=== PATIENT | male | born 1965 | race Caucasian/White ===

== ENCOUNTER → 2022-02-11 09:36 | Outpatient (CLI) | payer OTHER, SELFPAY ==
[2022-02-11 10:58] LABS: Add Manual Diff / Slide Review NO; Basophils Absolute Auto 0 /uL (0-100); Basophils Percent Auto 0.7 % (0-2); Eosinophils Absolute Auto 100 /uL (0-450); Eosinophils Percent Auto 2.3 % (2-4); Hematocrit 41.8 % (41-53); Hemoglobin 14.8 g/dL (13.5-17.5); Lymphocytes Absolute Auto 1500 /uL (1100-4500); Lymphocytes Percent Auto 31.6 % (25-40); Mean Corpuscular HGB Conc 35.5 % (30-36); Mean Corpuscular Hemoglobin 29.9 PG (26-34); Mean Corpuscular Volume 84.3 fL (80-100); Monocytes Absolute Auto 400 /uL (0-900); Monocytes Percent Auto 8.5 % (3-14); Neutrophils Absolute Auto 2700 /uL (1500-7000); Neutrophils Percent Auto 56.9 % (50-75); Platelet Count 256 X10^3/uL (150-400); Red Blood Cell Count 4.96 X10^6/uL (4.5-5.9); Red Cell Distribution Width 12.3 % (11.6-14.8); White Blood Cell Count 4.8 X10^3/uL (4.5-11.0)
[2022-02-11 11:41] LABS: Hemoglobin A1C% w Est Avg Glu 6.8 % (4.0-6.0)
[2022-02-11 11:45] LABS: Alanine Aminotransferase 24 IU/L (<50); Albumin 4.7 g/dL (3.5-5.0); Albumin Globulin Ratio 1.7 (1.0-2.8); Alkaline Phosphatase 59 U/L (38-126); Aspartate Aminotransferase 27 IU/L (17-59); BUN Creatinine Ratio 15.9 (6-22); Bilirubin Total 0.7 mg/dL (0.2-1.3); Blood Urea Nitrogen 13 mg/dL (9-20); Calcium 8.7 mg/dL (8.4-10.2); Carbon Dioxide 29 mmol/L (22-32); Chloride 98 mmol/L (98-107); Cholesterol 130 mg/dL (140-199); Estimated Glomerular Filt Rate > 60 mL/min (>60); Globulin 2.8 g/dL (1.7-4.1); Glucose 121 mg/dL (70-100); HDL Cholesterol 27 mg/dL (40-60); LDL Cholesterol Calculated 76 mg/dL (<100); Potassium 3.5 mmol/L (3.4-5.1); Sodium 137 mmol/L (137-145); Total Protein 7.5 g/dL (6.3-8.2); Triglycerides 135 mg/dL (35-150)
[2022-02-11 11:46] LABS: Creatinine Urine Random 333.8 mg/dL
[2022-02-11 11:47] LABS: Microalbumi Creatinin Ratio Ur 12.5 ug/mg CR (<30); Microalbumin Urine Random 4.2 mg/dL (0-1.6)
[2022-02-11 12:12] LABS: TSH w/ Reflex to FT4 0.11 uIU/mL (0.47-4.68)
[2022-02-12 05:17] LABS: HEMOLYSIS < 15 (0-50); Prostate Specific Antigen 1.88 ng/mL (0.10-4.00)
== END ==
PROVIDERS: PCP Family Medicine; Referring Provider Family Medicine; Visit Provider Family Medicine
DX: E78.2 Mixed hyperlipidemia (principal); F41.9 Anxiety disorder, unspecified; Z87.898 Personal history of other specified conditions; E11.9 Type 2 diabetes mellitus without complications; I10 Essential (primary) hypertension; Z00.00 Encounter for general adult medical examination without abnormal findings; Z13.9 Encounter for screening, unspecified
CPT/HCPCS: 36415; 80053; 80061; 82043; 82570; 83036; 84153; 84439; 84443; 85025

== ENCOUNTER → 2022-09-16 09:05 | Outpatient (CLI) | payer OTHER, SELFPAY ==
[2022-09-16 10:50] LABS: Alanine Aminotransferase 27 IU/L (<50); Albumin 4.4 g/dL (3.5-5.0); Albumin Globulin Ratio 1.4 (1.0-2.8); Alkaline Phosphatase 67 U/L (38-126); Aspartate Aminotransferase 26 IU/L (17-59); BUN Creatinine Ratio 18.3 (6-22); Bilirubin Total 0.5 mg/dL (0.2-1.3); Blood Urea Nitrogen 13 mg/dL (9-20); Calcium 8.6 mg/dL (8.4-10.2); Carbon Dioxide 27 mmol/L (22-32); Chloride 100 mmol/L (98-107); Cholesterol 136 mg/dL (140-199); Estimated Glomerular Filt Rate > 60 mL/min (>60); Globulin 3.2 g/dL (1.7-4.1); Glucose 183 mg/dL (70-100); HDL Cholesterol 28 mg/dL (40-60); HEMOLYSIS < 15 (0-50); LDL Cholesterol Calculated 78 mg/dL (<100); Potassium 3.6 mmol/L (3.4-5.1); Sodium 136 mmol/L (137-145); Total Protein 7.6 g/dL (6.3-8.2); Triglycerides 149 mg/dL (35-150)
== END ==
PROVIDERS: PCP Family Medicine; Referring Provider Family Medicine; Visit Provider Family Medicine
DX: E11.9 Type 2 diabetes mellitus without complications (principal); E78.2 Mixed hyperlipidemia; I10 Essential (primary) hypertension; Z13.9 Encounter for screening, unspecified; Z00.00 Encounter for general adult medical examination without abnormal findings
CPT/HCPCS: 36415; 80053; 80061; 83036

== ENCOUNTER → 2022-12-31 09:14 | Outpatient (CLI) | payer OTHER, MEDICAID, SELFPAY ==
[2022-12-31 11:04] LABS: Alanine Aminotransferase 30 IU/L (<50); Albumin 4.6 g/dL (3.5-5.0); Albumin Globulin Ratio 1.6 (1.0-2.8); Alkaline Phosphatase 65 U/L (38-126); Aspartate Aminotransferase 27 IU/L (17-59); BUN Creatinine Ratio 18.8 (6-22); Bilirubin Total 0.7 mg/dL (0.2-1.3); Blood Urea Nitrogen 15 mg/dL (9-20); Calcium 9.1 mg/dL (8.4-10.2); Carbon Dioxide 29 mmol/L (22-32); Chloride 96 mmol/L (98-107); Estimated Glomerular Filt Rate > 60 mL/min (>60); Globulin 2.8 g/dL (1.7-4.1); Glucose 132 mg/dL (70-100); HEMOLYSIS < 15 (0-50); Potassium 4.1 mmol/L (3.4-5.1); Sodium 136 mmol/L (137-145); Total Protein 7.4 g/dL (6.3-8.2)
[2023-01-01 09:51] LABS: x Labcorp Estim. Avg Glu (eAG) 140 mg/dL (.); x Labcorp Hemoglobin A1c 6.5 % (4.8-5.6)
== END ==
PROVIDERS: PCP Family Medicine; Referring Provider Family Medicine; Visit Provider Family Medicine
DX: E11.9 Type 2 diabetes mellitus without complications (principal); E78.2 Mixed hyperlipidemia; I10 Essential (primary) hypertension; Z13.9 Encounter for screening, unspecified
CPT/HCPCS: 36415; 80053; 83036

== ENCOUNTER → 2023-04-29 09:04 | Outpatient (CLI) | payer OTHER, MEDICAID, SELFPAY ==
[2023-04-29 10:38] LABS: Hemoglobin A1C% w Est Avg Glu 6.1 % (4.0-6.0)
[2023-04-29 10:40] LABS: Alanine Aminotransferase 30 IU/L (<50); Albumin 4.5 g/dL (3.5-5.0); Albumin Globulin Ratio 1.7 (1.0-2.8); Alkaline Phosphatase 52 U/L (38-126); Aspartate Aminotransferase 34 IU/L (17-59); BUN Creatinine Ratio 16.2 (6-22); Bilirubin Total 0.7 mg/dL (0.2-1.3); Blood Urea Nitrogen 12 mg/dL (9-20); Calcium 9.2 mg/dL (8.4-10.2); Carbon Dioxide 30 mmol/L (22-32); Chloride 98 mmol/L (98-107); Cholesterol 128 mg/dL (140-199); Estimated Glomerular Filt Rate > 60 mL/min (>60); Globulin 2.7 g/dL (1.7-4.1); Glucose 156 mg/dL (70-100); HDL Cholesterol 29 mg/dL (40-60); HEMOLYSIS 18 (0-50); LDL Cholesterol Calculated 48 mg/dL (<100); Potassium 3.8 mmol/L (3.4-5.1); Sodium 138 mmol/L (137-145); Total Protein 7.2 g/dL (6.3-8.2); Triglycerides 254 mg/dL (35-150)
[2023-04-29 11:11] LABS: Prostate Specific Antigen 1.95 ng/mL (0.10-4.00)
== END ==
PROVIDERS: PCP Family Medicine; Referring Provider Family Medicine; Visit Provider Family Medicine
DX: E11.9 Type 2 diabetes mellitus without complications (principal); E78.5 Hyperlipidemia, unspecified; I10 Essential (primary) hypertension; N40.0 Benign prostatic hyperplasia without lower urinary tract symptoms
CPT/HCPCS: 36415; 80053; 80061; 83036; 84153

== ENCOUNTER → 2023-05-06 14:45 | Outpatient (CLI) | payer OTHER, MEDICAID, SELFPAY ==
[2023-05-06 19:36] LABS: Creatinine Urine Random 83.1 mg/dL
[2023-05-06 19:42] LABS: Microalbumi Creatinin Ratio Ur 10.8 ug/mg CR (<30); Microalbumin Urine Random 0.9 mg/dL (0-1.6)
== END ==
PROVIDERS: PCP Family Medicine; Visit Provider Family Medicine
DX: E11.9 Type 2 diabetes mellitus without complications (principal); I10 Essential (primary) hypertension
CPT/HCPCS: 82043; 82570

== ENCOUNTER → 2023-10-27 09:17 | Outpatient (CLI) | payer OTHER, MEDICAID, SELFPAY ==
[2023-10-27 10:26] LABS: Add Manual Diff / Slide Review NO; Basophils Absolute Auto 0 /uL (0-100); Basophils Percent Auto 0.9 % (0-2); Eosinophils Absolute Auto 100 /uL (0-450); Eosinophils Percent Auto 1.2 % (2-4); Hematocrit 43.6 % (41-53); Hemoglobin 15.8 g/dL (13.5-17.5); Lymphocytes Absolute Auto 1200 /uL (1100-4500); Lymphocytes Percent Auto 25.3 % (25-40); Mean Corpuscular HGB Conc 36.3 % (30-36); Mean Corpuscular Hemoglobin 31.2 PG (26-34); Mean Corpuscular Volume 85.9 fL (80-100); Monocytes Absolute Auto 400 /uL (0-900); Monocytes Percent Auto 8.6 % (3-14); Neutrophils Absolute Auto 3100 /uL (1500-7000); Platelet Count 239 X10^3/uL (150-400); Red Blood Cell Count 5.08 X10^6/uL (4.5-5.9); Red Cell Distribution Width 12.4 % (11.6-14.8); White Blood Cell Count 4.8 X10^3/uL (4.5-11.0)
[2023-10-27 10:48] LABS: Hemoglobin A1C% w Est Avg Glu 7.4 % (4.0-6.0)
[2023-10-27 11:02] LABS: Alanine Aminotransferase 56 IU/L (<50); Albumin 4.6 g/dL (3.5-5.0); Albumin Globulin Ratio 1.4 (1.0-2.8); Alkaline Phosphatase 64 U/L (38-126); Aspartate Aminotransferase 41 IU/L (17-59); BUN Creatinine Ratio 21.3 (6-22); Bilirubin Total 1.1 mg/dL (0.2-1.3); Blood Urea Nitrogen 16 mg/dL (9-20); Calcium 9.5 mg/dL (8.4-10.2); Carbon Dioxide 30 mmol/L (22-32); Chloride 99 mmol/L (98-107); Cholesterol 153 mg/dL (140-199); Estimated Glomerular Filt Rate > 60 mL/min (>60); Globulin 3.3 g/dL (1.7-4.1); Glucose 167 mg/dL (70-100); HDL Cholesterol 32 mg/dL (40-60); HEMOLYSIS < 15 (0-50); LDL Cholesterol Calculated 65 mg/dL (<100); Potassium 4.2 mmol/L (3.4-5.1); Sodium 137 mmol/L (137-145); Total Protein 7.9 g/dL (6.3-8.2); Triglycerides 282 mg/dL (35-150)
[2023-10-27 11:31] LABS: Prostate Specific Antigen Scrn 2.92 ng/mL (0.1-4.0)
[2023-10-27 11:33] LABS: TSH w/ Reflex to FT4 0.39 uIU/mL (0.47-4.68)
[2023-10-27 12:44] LABS: Free T4, Direct Thyroxine 0.98 ng/dL (0.78-2.19)
== END ==
PROVIDERS: PCP Family Medicine; Referring Provider Family Medicine; Visit Provider Family Medicine
DX: E78.2 Mixed hyperlipidemia (principal); K76.0 Fatty (change of) liver, not elsewhere classified; E11.9 Type 2 diabetes mellitus without complications; I10 Essential (primary) hypertension; Z12.5 Encounter for screening for malignant neoplasm of prostate
CPT/HCPCS: 36415; 80053; 80061; 83036; 84439; 84443; 85025; G0103

== ENCOUNTER → 2024-06-01 09:42 | Outpatient (CLI) | payer OTHER, MEDICAID, SELFPAY ==
[2024-06-01 17:18] LABS: Hemoglobin A1C% w Est Avg Glu 6.5 % (4.0-6.0)
== END ==
PROVIDERS: PCP Family Medicine; Referring Provider Family Medicine; Visit Provider Family Medicine
DX: E11.9 Type 2 diabetes mellitus without complications (principal)
CPT/HCPCS: 36415; 83036

== ENCOUNTER → 2024-11-30 09:15 | Outpatient (CLI) | payer OTHER, SELFPAY ==
[2024-11-30 10:04] LABS: Add Manual Diff / Slide Review NO; Basophils Absolute Auto 0 /uL (0-100); Basophils Percent Auto 0.7 % (0-2); Eosinophils Absolute Auto 100 /uL (0-450); Eosinophils Percent Auto 1.5 % (2-4); Hematocrit 43.4 % (41-53); Hemoglobin 15.2 g/dL (13.5-17.5); Lymphocytes Absolute Auto 1200 /uL (1100-4500); Lymphocytes Percent Auto 25.6 % (25-40); Mean Corpuscular HGB Conc 35.1 % (30-36); Mean Corpuscular Hemoglobin 30.9 PG (26-34); Mean Corpuscular Volume 87.9 fL (80-100); Monocytes Absolute Auto 400 /uL (0-900); Monocytes Percent Auto 8.5 % (3-14); Neutrophils Absolute Auto 2900 /uL (1500-7000); Neutrophils Percent Auto 63.7 % (50-75); Platelet Count 198 X10^3/uL (150-400); Red Blood Cell Count 4.94 X10^6/uL (4.5-5.9); Red Cell Distribution Width 12.5 % (11.6-14.8); White Blood Cell Count 4.5 X10^3/uL (4.5-11.0)
[2024-11-30 10:07] LABS: Hemoglobin A1C% w Est Avg Glu 6.7 % (4.0-6.0)
[2024-11-30 10:20] LABS: Alanine Aminotransferase 36 IU/L (<50); Albumin 4.7 g/dL (3.5-5.0); Albumin Globulin Ratio 2.1 (1.0-2.8); Alkaline Phosphatase 73 U/L (38-126); Aspartate Aminotransferase 28 IU/L (17-59); BUN Creatinine Ratio 16.7 (6-22); Bilirubin Total 1.6 mg/dL (0.2-1.3); Blood Urea Nitrogen 15 mg/dL (9-20); Calcium 9.4 mg/dL (8.4-10.2); Carbon Dioxide 28 mmol/L (22-32); Chloride 98 mmol/L (98-107); Cholesterol 148 mg/dL (140-199); Estimated Glomerular Filt Rate > 60 mL/min (>60); Globulin 2.2 g/dL (1.7-4.1); Glucose 192 mg/dL (70-100); HDL Cholesterol 32 mg/dL (40-60); HEMOLYSIS < 15 (0-50); LDL Cholesterol Calculated 64 mg/dL (<100); Potassium 3.8 mmol/L (3.4-5.1); Sodium 136 mmol/L (137-145); Total Protein 6.9 g/dL (6.3-8.2); Triglycerides 260 mg/dL (35-150)
[2024-11-30 10:47] LABS: TSH w/ Reflex to FT4 0.73 uIU/mL (0.47-4.68)
== END ==
PROVIDERS: PCP Family Medicine; Referring Provider Family Medicine; Visit Provider Family Medicine
DX: Z00.00 Encounter for general adult medical examination without abnormal findings (principal); E03.9 Hypothyroidism, unspecified; E11.9 Type 2 diabetes mellitus without complications; E78.2 Mixed hyperlipidemia; I10 Essential (primary) hypertension
CPT/HCPCS: 36415; 80053; 80061; 83036; 84443; 85025

== ENCOUNTER 2025-02-14 06:38 | Day surgery (SDC) | payer OTHER, SELFPAY ==
--- NOTE | 2025-02-14 | PATH_ITS ---
[facility] Accession Number: [id number] No. of containers..01 Tissue . 01 Material submitted: . colon - SIGMOID POLYP . 01 Diagnosis: SIGMOID POLYP: Hyperplastic polyp. STO 02/20/2025 1548 Local . 01 Electronically signed: . James Bergeron MD, Pathologist NPI- [id number] . 01 Gross description: . SIGMOID POLYP: Received in formalin is 1 fragment(s) of reilly, soft tissue measuring 0.4 x 0.4 x 0.2 cm submitted entirely in 1 cassette(s) /MELODY 02/20/2025 1548 Local . 01 Pathologist provided ICD-10: K63.5 . 01 CPT . 076308 Specimen Comment: A courtesy copy of this report has been sent to [phone] Performed at: [address] [id number] MD James Bergeron MD Phone: [phone]
[2025-02-14 07:12] VITALS: BP 141/91; PULSE 104; RESP 16; TEMP 36.1; O2SAT 97
[2025-02-14 07:25] LABS: POC Glucose 197 mg/dL (70-99)
[2025-02-14] MEDS: LACTATED RINGERS 1,000 ML 42 ML IV (07:25)
--- NOTE | 2025-02-14 07:38 | P.HP_ITS ---
History of Present Illness History of Present Illness Chief complaint: Colonoscopy Narrative: Beena is a 59-year-old man here for a colonoscopy. He has had one before about 10 years ago that was normal. No known family history of colon cancer. [facility], LAT[facility] Medical History Depression Borderline hypothyroidism Incontinence of feces with fecal urgency Well adult exam Hyperlipidemia Vision disorder Hearing loss Anxiety (~2011) History of developmental delay Fatty liver (~2011) Diabetes mellitus (~2013) Hypertension (~2008) Surgical History Anesthesia History of colonoscopy (~2017) Kidney stones (~2016) Family History Father Cancer History of heart disease Mother Diabetes mellitus History of heart disease Hyperlipidemia Hypertension Sister Diabetes mellitus Hyperlipidemia Hypertension Grandfather Diabetes mellitus Stroke Grandmother Lupus Grandfather Cancer Social History Smoking Status: Never smoker alcohol intake: current Meds Home Medications and Allergies Home Medications ?Medication ?Instructions ?Recorded ?Confirmed ?Type multivitamin with iron PO 05/06/23 12/06/24 History vitamins A,C,[id number] [ICaps PO 05/06/23 12/06/24 History AREDS] pravastatin 20 mg tablet 20 mg PO BEDTIME #90 tabs 12/06/24 Rx empagliflozin 25 mg tablet 25 mg PO DAILY Poor glycemi c 07/23/24 02/14/25 Rx (Jardiance) control #90 tabs glipizide 5 mg tablet See Rx Instructions .Route 1 09/23/23 02/14/25 Rx .COMPLEX #180 tabs citalopram 10 mg tablet 10 mg PO DAILY #90 tabs 07/2412/06/24 Rx hydrochlorothiazide 12.5 mg tablet 12.5 mg PO DAILY #9 0 tabs 08/20/24 02/14/25 Rx metformin 500 mg tablet,extended 500 mg PO QPM #90 tab s 09/18/24 02/14/25 Rx release 24 hr losartan 50 mg tablet 50 mg PO DAILY #90 tabs 10/2202/14/25 Rx Allergies Allergy/AdvReac Type Severity Reaction Status Date / Time No Known Drug Allergies Allergy Verified 02/14/25 07:20 Exam Vital Signs (past 8 hours): - 02/14/25 07:12 Temperature 97.0 F L Pulse Rate 104 H Respiratory Rate 16 Blood Pressure 141/91 H Pulse Oximetry 97 Oxygen Delivery Method Room Air Oxygen Delivery Method Room Air Const General: No acute distress Objective Labs Labs: Laboratory Results - last 24 hr 02/14/25 07:20 POC Whole Bld Glucose 197 H Assessment & Plan Assessment and plan (1) Colon cancer screening: Status: Acute Plan Colonoscopy Time-Based Coding :: [TOTAL MINUTES] spent with patient and on the chart (including review of chart, obtaining history, exam, reviewing outside data, placing orders, documenting exam and treatment plan, and counseling patient) on [DATE]. [employer] Document charge(s): No
[2025-02-14 08:11] VITALS: BP 105/78; PULSE 84; RESP 12; TEMP 36.3; O2SAT 96
--- NOTE | 2025-02-14 08:14 | P.OP.COLON_ITS ---
Operative Date/Time/Diagnoses Date of procedure: 02/14/25 Time of procedure: 08:14 Pre-op diagnosis: Colon cancer screening Post-op diagnosis: same Procedure & Clinicians Study performed: Colonoscopy Same procedure(s) as scheduled: Yes Surgeon: Harpreet Pizarro Procedure Notes Procedure in detail: Surgeon: Harpreet Pizarro MD Anesthesia: Hernando Mancilla D.O. Procedure: The patient was brought to the endoscopy suite, placed in left lateral decubitus position. The patient was connected to monitoring devices. A time-out was performed. Sedation was administered. Once the patient was adequately sedated, a digital rectal exam was performed and was normal. The scope was then inserted and advanced to the cecum where the appendiceal orifice was identified and photographed. The scope was then slowly withdrawn over greater than 6 minutes. The mucosa was thoroughly inspected. There was mild s igmoid colon diverticulosis. There was a 3 mm polyp in the sigmoid colon removed with a cold snare. The scope was retroflexed in the rectum. No other abnormalities were found. The scope was straightened and removed. The patient was awakened and brought to recovery. Scope withdrawal time: 12 minutes Sedation time: 18 minute EBL: 3 mL Findings: Mild sigmoid colon diverticulosis and 3 mm sigmoid colon polyp Post-procedure Disposition: PACU
[2025-02-14 08:16] VITALS: BP 103/75; PULSE 77; RESP 18; O2SAT 95
[2025-02-14 08:21] VITALS: BP 116/78; PULSE 76; RESP 16; TEMP 36.3; O2SAT 98
== END 2025-02-14 08:41 | disposition home or self-care (01) ==
PROVIDERS: PCP Family Medicine; Referring Provider Surgery; Visit Provider Surgery
PROC: 0DJD8ZZ Inspection of Lower Intestinal Tract, Via Natural or Artificial Opening Endoscopic (ICD-10-PCS; CPT 45378; principal; 2025-02-14 07:45)
DX: Z12.11 Encounter for screening for malignant neoplasm of colon (principal); K57.30 Diverticulosis of large intestine without perforation or abscess without bleeding; K63.5 Polyp of colon
CPT/HCPCS: 45385; 82962; J2704

== ENCOUNTER → 2025-07-05 09:05 | Outpatient (CLI) | payer MEDICARE, OTHER, SELFPAY ==
[2025-07-05 09:46] LABS: Add Manual Diff / Slide Review NO; Hematocrit 45.3 % (41-53); Hemoglobin 15.9 g/dL (13.5-17.5); Lymphocytes Absolute Auto 1200 /uL (1100-4500); Mean Corpuscular HGB Conc 35.2 % (30-36); Mean Corpuscular Hemoglobin 30.8 PG (26-34); Mean Corpuscular Volume 87.5 fL (80-100); Platelet Count 244 X10^3/uL (150-400)
[2025-07-05 09:55] LABS: Hemoglobin A1C% w Est Avg Glu 6.3 % (4.0-6.0)
[2025-07-05 10:13] LABS: Alanine Aminotransferase 26 IU/L (<50); Albumin 5.0 g/dL (3.5-5.0); Albumin Globulin Ratio 1.7 (1.0-2.8); Alkaline Phosphatase 73 U/L (38-126); Blood Urea Nitrogen 17 mg/dL (9-20); Calcium 9.0 mg/dL (8.4-10.2); Carbon Dioxide 26 mmol/L (22-32); Chloride 99 mmol/L (98-107); Cholesterol 148 mg/dL (140-199); Estimated Glomerular Filt Rate > 60 mL/min (>60); Globulin 3.0 g/dL (1.7-4.1); Glucose 133 mg/dL (70-99); HDL Cholesterol 37 mg/dL (40-60); HEMOLYSIS < 15 (0-50); Potassium 3.8 mmol/L (3.4-5.1); Sodium 137 mmol/L (137-145); Total Protein 8.0 g/dL (6.3-8.2); Triglycerides 153 mg/dL (35-150)
[2025-07-05 10:42] LABS: TSH w/ Reflex to FT4 1.18 uIU/mL (0.47-4.68)
== END ==
PROVIDERS: PCP Family Medicine; Referring Provider Family Medicine; Visit Provider Family Medicine
DX: Z00.00 Encounter for general adult medical examination without abnormal findings (principal); E03.9 Hypothyroidism, unspecified; E78.2 Mixed hyperlipidemia; E11.9 Type 2 diabetes mellitus without complications; I10 Essential (primary) hypertension; E87.5 Hyperkalemia
CPT/HCPCS: 36415; 80053; 80061; 83036; 84443; 85025